=== PATIENT | male | born 1945 | race Caucasian/White ===

== ENCOUNTER → 2021-07-28 11:23 | Outpatient (BNVA) | payer OTHER, SELFPAY | PROVIDERS: Family Provider Emergency Medicine Emergency Medical Services; PCP Emergency Medicine Emergency Medical Services; Visit Provider Psychiatry & Neurology Psychiatry | DX: F32.A Depression, unspecified (principal); F43.10 Post-traumatic stress disorder, unspecified | CPT/HCPCS: 90792 ==

== ENCOUNTER → 2021-09-24 08:42 | Outpatient (BNVA) | payer OTHER, SELFPAY | PROVIDERS: Visit Provider Psychiatry & Neurology Psychiatry | DX: F32.A Depression, unspecified (principal); F43.10 Post-traumatic stress disorder, unspecified | CPT/HCPCS: 99214 ==

== ENCOUNTER 2023-07-14 09:21 | Emergency (ER) | payer OTHER, SELFPAY ==
--- NOTE | 2023-07-14 09:26 | ECG_ITS ---
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 Measurements Intervals [place] Rate: 82 P: 0 NE: 0 QRS: -31 QRSD: 127 T: 43 QT: 393 QTc: 460 Interpretive Statements ATRIAL FIBRILLATION POSSIBLE RIGHT VENTRICULAR CONDUCTION DELAY [RSR (QR) IN V1/V2] INFERIOR MYOCARDIAL INFARCTION , PROBABLY OLD [40+ ms Q WAVE AND/OR ST/T ABNORMALITY IN II/aVF] Compared to ECG 06/25/2018 11:55:36 Sinus rhythm no longer present First degree AV block no longer present Myocardial infarct finding still present Electronically Signed On 07-14-2023 11:38:35 AUTOMOTIVE SERVICE DIRECTOR by Rolly López M.D. [id number] f
[2023-07-14 09:28] VITALS: BP 134/81; PULSE 81; RESP 16; TEMP 36.4; O2SAT 97; BMI 29.9
--- NOTE | 2023-07-14 09:39 | XR_ITS ---
WS: [id number] XR chest 1V portable [id number] REASON FOR EXAM: new onset afib FINDINGS: Significant tortuosity and ectasia of the thoracic aorta. Mild cardiomegaly, hypertrophic appearance. Hilar and perihilar calcified granulomas disease. No acute or subacute pulmonary parenchymal or pleural abnormality. IMPRESSION: Hypertrophic cardiomegaly. No acute or subacute chest abnormality.
--- NOTE | 2023-07-14 09:44 | W.ED.WEAKNES ---
HPI - Weakness General: Chief complaint: Weakness Stated complaint: chest pain Time Seen by Provider: 07/14/23 09:37 Source: patient Mode of arrival: ambulatory History of Present Illness: 77-year-old male presents to the emergency room with complaint of weakness last 2 to 3 weeks he has some orthopnea and some dizziness spells but never actually passed out he is on oral anticoagulant for previous DVT still taking regularly. He has no known history of atrial fibrillation he is not having any chest discomfort at this time. No swelling in his legs. No known history of coronary disease. MD Complaint: generalized weakness Onset (ago): week(s) Relieving factors: none Exacerbating factors: none Associated symptoms: Denies chest pain, chills, confusion, melena, decreased appetite, diaphoresis, dysuria, easy bruising, fever(s), headache(s), myalgias, nausea, rash, short of breath, syncope or vomiting Review of Systems Const: Denies: fever(s), chills or diaphoresis Card: Reports: palpitations and irregular heart rhythm; Denies: chest pain, edema, swelling of feet/ankles or syncope Resp: Denies: dyspnea GI: Denies: abdominal pain, nausea, vomiting or melena : Denies: dysuria Musc: Denies: neck pain or back pain Skin/Breast: Denies: rash Neuro: Denies: headache(s) or confusion Kulwant/Lymph: Denies: easy bruising [facility] ED PFSH: Medical History Depression [place] filter in place ASHD (arteriosclerotic heart disease) Diabetes Hyperlipidemia DVT (deep venous thrombosis) Anticoagulant long-term use Eliquis HTN (hypertension) Prostate CA Family History Mother , AGE 83 CAD (coronary artery disease) Father , AGE 78 Cancer PANCREATIC CA Physical Exam Const: COMMON NORMALS: no acute distress GENERAL APPEARANCE: cooperative and comfortable ORIENTATION/CONSCIOUSNESS: Yes awake, Yes oriented to person, Yes oriented to place and Yes oriented to time HENMT: COMMON NORMALS: normocephalic, atraumatic and hearing grossly normal bilaterally HEAD & SCALP: normocephalic and atraumatic Resp: COMMON NORMALS: normal respiratory effort, No retractions, No use of accessory muscles and clear to auscultation bilaterally AUSCULTATION: clear to auscultation bilaterally Cardio: COMMON NORMALS: regular rate, regular rhythm and No murmurs present (Cardio) RATE: regular rate RHYTHM: regular rhythm GI: COMMON NORMALS: Soft to palpation and No hepatosplenomegaly present AUSCULTATION: Yes normoactive bowel sounds PALPATION: Yes Soft to palpation, No Tenderness to palpation present (GI), No Guarding due to palpation present (GI) and Yes No hepatosplenomegaly present Extremity: COMMON NORMALS: normal to inspection, capillary refill normal, no clubbing, cyanosis or edema, no calf tenderness and no pedal edema Neuro: SENSORIUM/ORIENTATION: Yes oriented to person, Yes oriented to place and Yes oriented to time Skin: COMMON NORMALS: no rashes or lesions noted GENERAL SKIN EXAM: no rashes or lesions noted Course Vital Signs: Vital signs: Vital Signs Temperature 97.6 F 07/14/23 09:28 Pulse Rate 88 07/14/23 12:05 Respiratory Rate 20 H 07/14/23 12:05 Blood Pressure 143/78 07/14/23 12:05 Pulse Oximetry 96 07/14/23 12:05 MDM - Weakness Medical Decision Making Patient is in atrial fibrillation atenolol and Eliquis. I do not think the atenolol is quite keeping him well-controlled at all times. Will switch him to Toprol-XL 50 mg once daily continue the Eliquis follow-up with his primary care doctor within the week rate at this time is well-controlled suspect he is having breakthrough episodes on the atenolol. Return if is worsening problems Medical Records I reviewed the patient's medical records. Lab Data I reviewed the patient's lab results. 07/14/23 10:03 07/14/23 10:03 Laboratory Results WBC 5.60 10^3/uL (3.29-11.43) 07/14/23 10:03 RBC 4.97 10^6/uL (3.85-5.65) 07/14/23 10:03 Hgb 15.60 g/dL (11.27-16.99) 07/14/23 10:03 Hct 47.5 % (37-53) 07/14/23 10:03 MCV 95.6 fl (82-101) 07/14/23 10:03 MCH 31.4 pg (27-33) 07/14/23 10:03 MCHC 32.8 g/dL (30-55) 07/14/23 10:03 RDW 12.9 % (12.1-15.1) 07/14/23 10:03 Plt Count 146 10^3/cmm (157-399) L 07/14/23 10:03 MPV 11.4 fL (7.4-10.4) H 07/14/23 10:03 Neut % (Auto) 62.7 % 07/14/23 10:03 Lymph % (Auto) 24.8 % 07/14/23 10:03 [place] % (Auto) 10.7 % 07/14/23 10:03 Eos % (Auto) 0.7 % 07/14/23 10:03 Baso % (Auto) 0.7 % 07/14/23 10:03 Neut # (Auto) 3.51 10^3/uL (1.8-7.7) 07/14/23 10:03 Lymph # (Auto) 1.4 10^3/uL (0.8-4.8) 07/14/23 10:03 [place] # (Auto) 0.6 10^3/uL (0.2-0.9) 07/14/23 10:03 Eos # (Auto) 0.0 10^3/uL (0.0-0.8) 07/14/23 10:03 Baso # (Auto) 0.0 10^3/uL (0.0-0.1) 07/14/23 10:03 Nucleated RBC % (auto) 0 % 07/14/23 10:03 Nucleated RBCs # 0.0 /100WBC 07/14/23 10:03 Sodium 142 mmol/L (136-145) 07/14/23 10:03 Potassium 4.4 mmol/L (3.5-5.1) 07/14/23 10:03 Chloride 105 mmol/L (98-107) 07/14/23 10:03 Carbon Dioxide 25 mmol/L (22-29) 07/14/23 10:03 Anion Gap 16.4 (5-19) 07/14/23 10:03 BUN 27 mg/dL (8-23) H 07/14/23 10:03 Creatinine 1.6 mg/dL (0.7-1.2) H 07/14/23 10:03 GFR Calculation Not Reportable 07/14/23 10:03 Glucose 188 mg/dL (65-115) H 07/14/23 10:03 Calculated Osmolality 304 mOsm/kg (285-295) H 07/14/23 10:03 Calcium 8.5 mg/dL (8.5-10.5) 07/14/23 10:03 Total Bilirubin 0.5 mg/dL (0.15-1.2) 07/14/23 10:03 AST 17 U/L (0-40) 07/14/23 10:03 ALT 20 U/L (0-41) 07/14/23 10:03 Alkaline Phosphatase 55 U/L (40-130) 07/14/23 10:03 Troponin T Baseline 22 ng/L (0-15) H 07/14/23 10:03 Total Protein 6.3 g/dL (6.6-8.7) L 07/14/23 10:03 Albumin 4.1 g/dL (3.5-5.2) 07/14/23 10:03 Globulin 2.2 g/dL (1.3-4.6) 07/14/23 10:03 TSH 1.84 uIU/mL (0.27-4.20) 07/14/23 10:03 All radiology interpretation(s) finalized by discharge Discharge Plan Discharge Patient Disposition: Home Clinical Impression: Atrial fibrillation Condition: Stable Prescriptions: New Toprol XL 50 mg tablet extended release 24 hr 50 mg PO DAILY Qty: 30 0RF Discontinued atenolol 100 mg tablet 100 mg PO QPM No Action Ozempic 0.25 mg or 0.5 mg(2 mg/1.5 mL) pen injector 0.5 mg SUBCUT Q7D Rx Instructions: ON TUESDAY Eliquis 5 mg tablet 2.5 mg PO BID lisinopril 40 mg tablet 40 mg PO QPM Lantus U-100 Insulin 100 unit/mL solution 20 unit SUBCUT QAM simvastatin 80 mg tablet 40 mg PO QPM tamsulosin 0.4 mg Capsule 0.8 mg PO QPM Discharge Orders: Discharge ED (Routine); Ordered 07/14/23 Ordered By: Jose Fofana Referrals: Janette Bills MD [Primary Care Provider] - Discharge Diet: Usual diet Discharge Activity: Increase activity as tolerated Patient Instructions: Opioid Safety, Pain Management Activity Restrictions/Additional Instructions: Thank you for choosing [facility] for your healthcare needs today. Please realize this is an emergency room and that we are providing you with a medical screening exam and this may not be complete and all inclusive of all the testing and or work up that you may need to determine your ailment or severity of your illness. It is very important that you follow up as instructed or that you return to the Emergency Department should you have concerns or if your condition changes or worsens in any way. You were seen today for atrial fibrillation. Recommend that you stop the atenolol and start metoprolol XL 50 mg once a day. Continue your Eliquis at this previously prescribed dose. Case management make arrangements for you to have a follow-up appointment with cardiology. Return if you have further problems. Coding Level of Care Code ED Sodium Chlorite Operator for Navya Dee
[2023-07-14 10:11] LABS: Basophils % 0.7 %; Eosinophils % 0.7 %; Hematocrit 47.5 % (37-53); Lymphocytes # 1.4 10^3/uL (0.8-4.8); Lymphocytes % 24.8 %; Mean Corpuscular HGB Conc 32.8 g/dL (30-55); Mean Corpuscular Hemoglobin 31.4 pg (27-33); Mean Corpuscular Volume 95.6 fl (82-101); Mean Platelet Volume 11.4 fL (7.4-10.4); Monocytes # 0.6 10^3/uL (0.2-0.9); Monocytes % 10.7 %; Neutrophils # 3.51 10^3/uL (1.8-7.7); Neutrophils % 62.7 %; Nucleated Red Blood Cells % 0 %; Platelet Count 146 10^3/cmm (157-399); Red Blood Count 4.97 10^6/uL (3.85-5.65); Red Cell Distribution Width 12.9 % (12.1-15.1)
[2023-07-14 10:33] VITALS: PULSE 88; RESP 23
[2023-07-14 10:34] LABS: Troponin(5th) Baseline 22 ng/L (0-15)
[2023-07-14 10:41] LABS: Alanine Aminotransferase 20 U/L (0-41); Albumin Level 4.1 g/dL (3.5-5.2); Alkaline Phosphatase 55 U/L (40-130); Aspartate Amino Transferase 17 U/L (0-40); Blood Urea Nitrogen 27 mg/dL (8-23); Calcium 8.5 mg/dL (8.5-10.5); Carbon Dioxide 25 mmol/L (22-29); Chloride 105 mmol/L (98-107); Globulin 2.2 g/dL (1.3-4.6); Glucose 188 mg/dL (65-115); Osmolality Calculated 304 mOsm/kg (285-295); Sodium 142 mmol/L (136-145); Thyroid Stimulating Hormone 1.84 uIU/mL (0.27-4.20); Total Bilirubin 0.5 mg/dL (0.15-1.2); Total Protein 6.3 g/dL (6.6-8.7)
[2023-07-14 10:45] LABS: Anion Gap 16.4 (5-19); Potassium 4.4 mmol/L (3.5-5.1)
--- NOTE | 2023-07-14 10:49 | PC.PHAR ---
PT VERIFIED MEDICATIONS WAITING ON [facility] TO DOUBLE VERIFY
[2023-07-14 11:00] VITALS: BP 145/101; PULSE 93; RESP 22; O2SAT 96
--- NOTE | 2023-07-14 12:03 | DCPLANNER ---
Message was sent to heart care on 07/14/23 at 1203. Clinic to contact patient.
[2023-07-14 12:05] VITALS: BP 143/78; PULSE 88; RESP 20; O2SAT 96
--- NOTE | 2023-07-15 10:43 | PC.SOCIAL ---
[facility] Auth: ER Note still in draft; sent to [place] to request authorization for cardiology follow up.
== END 2023-07-14 12:06 | disposition home or self-care (01) ==
PROVIDERS: Emergency Provider Family Medicine; PCP Family Medicine
DX: I48.91 Unspecified atrial fibrillation (principal); Z79.01 Long term (current) use of anticoagulants; Z79.4 Long term (current) use of insulin; E11.9 Type 2 diabetes mellitus without complications; E78.5 Hyperlipidemia, unspecified; I10 Essential (primary) hypertension; Z85.46 Personal history of malignant neoplasm of prostate
CPT/HCPCS: 36415; 71045; 80053; 84443; 84484; 85025; 93005; 99285

== ENCOUNTER → 2023-09-20 10:22 | Outpatient (BNVA) | payer OTHER, SELFPAY | PROVIDERS: PCP Family Medicine; Referring Provider Emergency Medicine Emergency Medical Services; Visit Provider Internal Medicine Cardiovascular Disease | DX: I10 Essential (primary) hypertension (principal); I48.91 Unspecified atrial fibrillation; Z79.01 Long term (current) use of anticoagulants; I82.409 Acute embolism and thrombosis of unspecified deep veins of unspecified lower extremity; E78.5 Hyperlipidemia, unspecified; I25.10 Atherosclerotic heart disease of native coronary artery without angina pectoris; Z95.828 Presence of other vascular implants and grafts; E11.9 Type 2 diabetes mellitus without complications; Z95.820 Peripheral vascular angioplasty status with implants and grafts; I47.10 Supraventricular tachycardia, unspecified; I49.3 Ventricular premature depolarization | CPT/HCPCS: 93225; 99203 ==

== ENCOUNTER 2023-10-03 09:19 | Outpatient (CLI) | payer OTHER, SELFPAY ==
--- NOTE | 2023-10-03 09:30 | USCV_ITS ---
Ken Miguel Age: 77 Gender: M : 1945 Exam Date: 10/03/2023 09:28 Ordering Phys: Roland Rod MD ([email or web address]) Technologist: Exam Location: [facility] – [place] Indication: murmur BP: 140 / 80 HR: 76 Rhythm: Sinus Technical Quality: Adequate MEASUREMENTS (Male / Female) Normal Values 2D ECHO LV Diastolic Diameter PLAX 4.6 cm 4.2 - 5.9 / 3.9 - 5.3 cm IVS Diastolic Thickness 1.3 cm 0.6 - 1.0 / 0.6 - 0.9 cm IVS Systolic Thickness 1.7 cm LVPW Diastolic Thickness 1.5 cm 0.6 - 1.0 / 0.6 - 0.9 cm LVPW Systolic Thickness 1.8 cm LVOT Diameter 2.0 cm LV Ejection Fraction 2D Teich 67.8 % LV Ejection Fraction MOD 2C 63.8 % LV Ejection Fraction 2C AL 65.4 % LA Diameter 2.9 cm RA Systolic Volume 4C AL 45.9 ml RA Systolic Volume 4C MOD 43.6 ml LA Sys Volume AL 59.8 cm cubed LA Sys Volume Index AL 27.3 cm cubed/m squared Aorta at Sinotubular Diameter 3.4 cm M-MODE LA Ao Ratio MM 1.1 AV Cusp Separation MM 2.5 cm DOPPLER AV Peak Velocity 120.0 cm/s LVOT Peak Velocity 84.0 cm/s AV Area Cont Eq vti 3.2 cm squared AV Area Cont Eq pk 2.2 cm squared MV Area PHT 4.1 cm squared Mitral E to A Ratio 0.5 TV Peak Velocity 142.0 cm/s TR Peak Velocity 164.0 cm/s TR Peak Gradient 10.8 mmHg TV Peak E Velocity 97.0 cm/s Right Atrial Pressure 3.0 mmHg Pulmonary Artery Systolic Pressu 13.8 mmHg PV Peak Velocity 85.0 cm/s FINDINGS Left Ventricle Left ventricle is normal in size. LV systolic function is normal with EF 55 to 60%. No regional wall motion abnormalities are seen. Grade 1 diastolic dysfunction. Right Ventricle Normal in size and function Right Atrium Normal in size Left Atrium Normal in size Mitral Valve Structurally normal mitral valve. Aortic Valve Structurally normal aortic valve. Mild aortic regurgitation. Tricuspid Valve Mild tricuspid regurgitation. Pulmonary artery systolic pressure is normal. Pulmonic Valve Not well-visualized. Pericardium Normal Aorta Normal in size IVC Not well visualized CONCLUSIONS LV systolic function is normal with EF 55 to 60%. Grade 1 diastolic dysfunction. Mild aortic regurgitation Mild tricuspid regurgitation Rolly López MD (Electronically Signed) Final Date: 08 Oct 2023 22:47 S
== END 2023-10-03 09:20 | disposition home or self-care (01) ==
LOC: RAD 09:19
PROVIDERS: PCP Emergency Medicine Emergency Medical Services; Visit Provider Internal Medicine Cardiovascular Disease
DX: I48.91 Unspecified atrial fibrillation (principal); I35.1 Nonrheumatic aortic (valve) insufficiency; I07.1 Rheumatic tricuspid insufficiency
CPT/HCPCS: 93306

== ENCOUNTER → 2023-12-19 11:27 | Outpatient (BNVA) | payer OTHER, SELFPAY | PROVIDERS: PCP Emergency Medicine Emergency Medical Services; Visit Provider Internal Medicine Cardiovascular Disease | DX: I10 Essential (primary) hypertension (principal); Z79.01 Long term (current) use of anticoagulants; I82.409 Acute embolism and thrombosis of unspecified deep veins of unspecified lower extremity; E78.5 Hyperlipidemia, unspecified; I25.10 Atherosclerotic heart disease of native coronary artery without angina pectoris; Z95.828 Presence of other vascular implants and grafts; Z95.820 Peripheral vascular angioplasty status with implants and grafts; E11.9 Type 2 diabetes mellitus without complications; Z79.4 Long term (current) use of insulin | CPT/HCPCS: 99214 ==

== ENCOUNTER 2024-01-17 10:00 | Emergency (ER) | payer OTHER, SELFPAY ==
[2024-01-17 10:00] VITALS: BP 164/91; PULSE 74; RESP 22; TEMP 37.1
--- NOTE | 2024-01-17 10:20 | ECG_ITS ---
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 Measurements Intervals [place] Rate: 73 P: 0 LA: 204 QRS: -35 QRSD: 139 T: -4 QT: 427 QTc: 473 Interpretive Statements SINUS RHYTHM INTRAVENTRICULAR CONDUCTION DELAY [130+ ms QRS DURATION] INFERIOR MYOCARDIAL INFARCTION , PROBABLY OLD [40+ ms Q WAVE AND/OR ST/T ABNORMALITY IN II/aVF] Compared to ECG 07/14/2023 09:26:41 Intraventricular conduction delay now present Atrial fibrillation no longer present Myocardial infarct finding still present Electronically Signed On 01-17-2024 16:27:29 CDT by Rolly López M.D. [email or web address]/[id number] f
--- NOTE | 2024-01-17 10:21 | XR_ITS ---
WS: [id number] Examination: XR chest 1V portable [id number] Reason for Exam: dyspnea/cough Date: January 17, 2024 Comparison: 01/24/2024 Findings: The heart is mildly prominent in size. The mediastinum is not widened. There is no pulmonary edema or pleural effusion. There is no dense consolidation XR/XR chest 1V portable [id number] Impression: No acute lung process is identified.
--- NOTE | 2024-01-17 10:21 | W.ED.WEAKNES ---
HPI - Weakness General: Chief complaint: Weakness Stated complaint: weakness, Dizzy Time Seen by Provider: 01/17/24 10:09 History of Present Illness: 78-year-old male presents emergency room complaining weakness and dizziness. He states he had this last couple weeks recurs and every stands up he is able to anticipate is not had any full syncopal episodes. He has a known history of coronary disease has previously had stents placed. We have been titrating some of his medications for blood pressure at this time. He is usually seen [facility] the [facility]. He is also has a known history of atrial fibrillation. He is on oral anticoagulation has not had any signs of bleeding Associated symptoms: Denies chest pain, chills, dysuria or fever(s) Review of Systems Const: Denies: fever(s) or chills Card: Denies: chest pain Resp: Denies: dyspnea GI: Denies: abdominal pain : Denies: dysuria, urinary frequency or urinary urgency Musc: Denies: neck pain or back pain Skin/Breast: Denies: rash Neuro: Reports: dizziness PFSH ED PFSH: Medical History Depression [place] filter in place ASHD (arteriosclerotic heart disease) Diabetes Hyperlipidemia DVT (deep venous thrombosis) Anticoagulant long-term use Eliquis HTN (hypertension) Prostate CA Surgical History S/P angioplasty with stent Family History Mother , AGE 83 CAD (coronary artery disease) Father , AGE 78 Cancer PANCREATIC CA Social History Smoking and tobacco/nicotine status: never used tobacco/nicotine Alcohol intake: never Substance/Drug Use: never Physical Exam Const: COMMON NORMALS: no acute distress GENERAL APPEARANCE: cooperative and comfortable ORIENTATION/CONSCIOUSNESS: Yes awake, Yes oriented to person, Yes oriented to place and Yes oriented to time HENMT: COMMON NORMALS: normocephalic, atraumatic and hearing grossly normal bilaterally HEAD & SCALP: normocephalic and atraumatic Resp: COMMON NORMALS: normal respiratory effort, No retractions, No use of accessory muscles and clear to auscultation bilaterally AUSCULTATION: clear to auscultation bilaterally Cardio: COMMON NORMALS: regular rate, regular rhythm and No murmurs present (Cardio) RATE: regular rate RHYTHM: regular rhythm GI: COMMON NORMALS: Soft to palpation and No hepatosplenomegaly present AUSCULTATION: Yes normoactive bowel sounds PALPATION: Yes Soft to palpation, No Tenderness to palpation present (GI), No Guarding due to palpation present (GI) and Yes No hepatosplenomegaly present Extremity: COMMON NORMALS: normal to inspection, capillary refill normal, no clubbing, cyanosis or edema, no calf tenderness and no pedal edema Neuro: SENSORIUM/ORIENTATION: Yes oriented to person, Yes oriented to place and Yes oriented to time Skin: COMMON NORMALS: no rashes or lesions noted GENERAL SKIN EXAM: no rashes or lesions noted Course Vital Signs: Vital signs: Vital Signs Temperature 98.7 F 01/17/24 10:00 Pulse Rate 68 01/17/24 12:41 Respiratory Rate 22 H 01/17/24 10:00 Blood Pressure 182/96 01/17/24 12:41 Pulse Oximetry 97 01/17/24 11:56 Oxygen Delivery Me thod Room Air 01/17/24 11:56 MDM - Weakness Medical Decision Making Patient presenting positive orthostatics when he first arrived here EKG first run shows some lateral ST depression however reviewing his old EKGs that has been has been present in the past. His troponins are negative he was given IV fluids and his repeat orthostatics are normal he is not having any further symptoms at this point. Will have him hold his hydrochlorothiazide. And follow-up with his primary care doctor within a week. His creatinine has climbed a little bit in the last year. He is also on lisinopril 40 daily which may also play a role. Further adjustments of his blood pressure medications in the outpatient setting. Lab Data 01/17/24 09:50 01/17/24 09:50 Radiology Impressions Chest X-Ray 01/17/24 10:21 Impression: No acute lung process is identified. Laboratory Results WBC 6.42 10^3/uL (3.29-11.43) 01/17/24 09:50 RBC 4.83 10^6/uL (3.85-5.65) 01/17/24 09:50 Hgb 15.20 g/dL (11.27-16.99) 01/17/24 09:50 Hct 45.7 % (37-53) 01/17/24 09:50 MCV 94.6 fl (82-101) 01/17/24 09:50 MCH 31.5 pg (27-33) 01/17/24 09:50 MCHC 33.3 g/dL (30-55) 01/17/24 09:50 RDW 12.5 % (12.1-15.1) 01/17/24 09:50 Plt Count 152 10^3/cmm (157-399) L 01/17/24 09:50 MPV 11.2 fL (7.4-10.4) H 01/17/24 09:50 Neut % (Auto) 64.1 % 01/17/24 09:50 Lymph % (Auto) 23.1 % 01/17/24 09:50 [place] % (Auto) 10.1 % 01/17/24 09:50 Eos % (Auto) 1.4 % 01/17/24 09:50 Baso % (Auto) 0.8 % 01/17/24 09:50 Neut # (Auto) 4.12 10^3/uL (1.8-7.7) 01/17/24 09:50 Lymph # (Auto) 1.5 10^3/uL (0.8-4.8) 01/17/24 09:50 [place] # (Auto) 0.7 10^3/uL (0.2-0.9) 01/17/24 09:50 Eos # (Auto) 0.1 10^3/uL (0.0-0.8) 01/17/24 09:50 Baso # (Auto) 0.1 10^3/uL (0.0-0.1) 01/17/24 09:50 Nucleated RBC % (auto) 0 % 01/17/24 09:50 Nucleated RBCs # 0.0 /100WBC 01/17/24 09:50 Sodium 137 mmol/L (136-145) 01/17/24 09:50 Potassium 3.8 mmol/L (3.5-5.1) 01/17/24 09:50 Chloride 101 mmol/L (98-107) 01/17/24 09:50 Carbon Dioxide 25 mmol/L (22-29) 01/17/24 09:50 Anion Gap 14.8 (5-19) 01/17/24 09:50 BUN 26 mg/dL (8-23) H 01/17/24 09:50 Creatinine 1.6 mg/dL (0.7-1.2) H 01/17/24 09:50 GFR Calculation Not Reportable 01/17/24 09:50 Glucose 139 mg/dL (65-115) H 01/17/24 09:50 Calculated Osmolality 291 mOsm/kg (285-295) 01/17/24 09:50 Calcium 8.9 mg/dL (8.5-10.5) 01/17/24 09:50 Total Bilirubin 0.6 mg/dL (0.15-1.2) 01/17/24 09:50 AST 23 U/L (0-40) 01/17/24 09:50 ALT 29 U/L (0-41) 01/17/24 09:50 Alkaline Phosphatase 59 U/L (40-130) 01/17/24 09:50 Troponin T Baseline 21 ng/L (0-15) H 01/17/24 09:50 Troponin T 120 Minute 17.54 ng/L (0-15) H 01/17/24 11:53 Delta Troponin T -3.46 ABS# (0-10) L 01/17/24 11:53 Total Protein 6.7 g/dL (6.6-8.7) 01/17/24 09:50 Albumin 4.1 g/dL (3.5-5.2) 01/17/24 09:50 Globulin 2.6 g/dL (1.3-4.6) 01/17/24 09:50 Urine Color Yellow (Yellow) 01/17/24 11:54 Urine Appearance Clear (CLEAR) 01/17/24 11:54 Urine pH 6.0 (5-7) 01/17/24 11:54 Ur Specific [place] 1.013 (1.005-1.030) 01/17/24 11:54 Urine Protein Negative (Negative) 01/17/24 11:54 Urine Glucose (UA) Negative (Normal) 01/17/24 11:54 Urine Ketones Negative (Negative) 01/17/24 11:54 Urine Blood Negative (Negative) 01/17/24 11:54 Urine Nitrate Negative (Negative) 01/17/24 11:54 Urine Bilirubin Negative (Negative) 01/17/24 11:54 Urine Urobilinogen 1.0 mg/dL (Negative) 01/17/24 11:54 Ur Leukocyte Esterase Negative (Negative) 01/17/24 11:54 Urine RBC 0-2 /hpf (0-2) 01/17/24 11:54 Urine WBC 0-5 /hpf (0-5) 01/17/24 11:54 Ur Squamous Epith Cells 0-5 /hpf (0-5) 01/17/24 11:54 Amorphous Sediment Not Reportable 01/17/24 11:54 Urine Bacteria None seen /hpf (NONE) 01/17/24 11:54 Hyaline Casts 3.30 /lpf 01/17/24 11:54 All radiology interpretation(s) finalized by discharge EKG Data EKG 1: Interpretation: EKG 813 2024-03-13. Q waves in 2 and aVF. Normal sinus rhythm. No acute ST changes noted. Compared to EKG 07/14/2023 at that time he was in atrial fibrillation Q waves are also present at that time. EKG 2: Interpretation: EKG 813 2024-05-17. Q waves still present in 3 and aVF unchanged from previous EKG in July and done earlier same day. No acute ST changes noted. Normal sinus rhythm GA interval at 215 first-degree AV block. Discharge Plan Discharge Patient Disposition: Home Clinical Impression: Orthostasis, Chronic kidney disease (CKD) Condition: Stable Prescriptions: Discontinued hydrochlorothiazide 25 mg tablet 25 mg PO QPM No Action Eliquis 5 mg tablet 2.5 mg PO BID lisinopril 40 mg tablet 40 mg PO QPM Lantus U-100 Insulin 100 unit/mL solution 20 unit SUBCUT QAM simvastatin 80 mg tablet 40 mg PO QPM cholecalciferol (vitamin D3) 50 mcg (2,000 unit) capsule 50 mcg PO QPM atenolol 100 mg tablet 100 mg PO QPM hydroxyzine HCl 25 mg tablet 25 mg PO BEDTIME PRN (Reason: Sleep) prazosin 2 mg capsule 8 mg PO BEDTIME amlodipine 5 mg tablet 5 mg PO QPM tamsulosin 0.4 mg Capsule 0.8 mg PO QPM sertraline 100 mg tablet 100 mg PO QPM semaglutide (weight loss) 1 mg/0.5 mL Pen Injector 1 mg SUBCUT Q7D Discharge Orders: Discharge ED (Routine); Ordered 01/17/24 Ordered By: Jose Fofana Referrals: Artemio Reyes, [Primary Care Provider] - Discharge Diet: Usual diet Discharge Activity: Increase activity as tolerated Patient Instructions: Opioid Safety, Pain Management Activity Restrictions/Additional Instructions: Thank you for choosing [facility] for your healthcare needs today. It is very important that you follow up as instructed or that you return to the Emergency Department should you have concerns or if your condition changes or worsens in any way. You were seen in the emergency room with episode of orthostatic hypotension (blood pressure dropping when you stand). Your symptoms and blood pressure readings improved after being given IV fluids. Recommend you hold the hydrochlorothiazide. Continue your other medications as previously prescribed follow-up with your primary care doctor within the next week to reevaluate blood pressure and symptoms. Have any worsening or recurrence of symptoms return to the emergency room Coding Level of Care Code ED Scientific Database Curator for Chg Fwd Related Data Home Medications Medication Instructions Recorded Confirmed insulin glargine 100 unit/mL 20 unit SUBCUT QAM 07/10/19 01/17/24 subcutaneous solution (Lantus U-100 Insulin) lisinopril 40 mg tablet 40 mg PO QPM 07/10/19 01/17/24 simvastatin 80 mg tablet 40 mg PO QPM 07/10/19 01/17/24 apixaban 5 mg tablet (Eliquis) 2.5 mg PO BID 07/28/21 01/17/24 tamsulosin 0.4 mg capsule 0.8 mg PO QPM 07/14/23 01/17/24 amlodipine 5 mg tablet 5 mg PO QPM 09/20/23 01/17/24 atenolol 100 mg tablet 100 mg PO QPM 09/20/23 01/17/24 cholecalciferol (vitamin D3) 50 50 mcg PO QPM 09/20/23 01/17/24 mcg (2,000 unit) capsule hydroxyzine HCl 25 mg tablet 25 mg PO BEDTIME PRN Sleep 09/20/23 01/17/24 prazosin 2 mg capsule 8 mg PO BEDTIME 09/20/23 01/17/24 semaglutide (weight loss) 1 mg/0.5 1 mg SUBCUT Q7D 01/17/24 01/17/24 mL subcutaneous pen injector sertraline 100 mg tablet 100 mg PO QPM 01/17/24 01/17/24 Allergies Allergy/AdvReac Type Severity Reaction Status Date / Time No Known Allergies Allergy Verified 12/19/23 11:33
[2024-01-17] MEDS: sodium chloride 0.9% 1,000 ML 999 ML IV (10:27)
[2024-01-17 10:30] LABS: Basophils # 0.1 10^3/uL (0.0-0.1); Basophils % 0.8 %; Eosinophils # 0.1 10^3/uL (0.0-0.8); Eosinophils % 1.4 %; Hematocrit 45.7 % (37-53); Lymphocytes # 1.5 10^3/uL (0.8-4.8); Lymphocytes % 23.1 %; Mean Corpuscular HGB Conc 33.3 g/dL (30-55); Mean Corpuscular Hemoglobin 31.5 pg (27-33); Mean Corpuscular Volume 94.6 fl (82-101); Mean Platelet Volume 11.2 fL (7.4-10.4); Monocytes # 0.7 10^3/uL (0.2-0.9); Monocytes % 10.1 %; Neutrophils # 4.12 10^3/uL (1.8-7.7); Neutrophils % 64.1 %; Nucleated Red Blood Cells % 0 %; Platelet Count 152 10^3/cmm (157-399); Red Blood Count 4.83 10^6/uL (3.85-5.65); Red Cell Distribution Width 12.5 % (12.1-15.1); White Blood Count 6.42 10^3/uL (3.29-11.43)
[2024-01-17 10:47] LABS: Alanine Aminotransferase 29 U/L (0-41); Albumin Level 4.1 g/dL (3.5-5.2); Alkaline Phosphatase 59 U/L (40-130); Anion Gap 14.8 (5-19); Aspartate Amino Transferase 23 U/L (0-40); Blood Urea Nitrogen 26 mg/dL (8-23); Calcium 8.9 mg/dL (8.5-10.5); Carbon Dioxide 25 mmol/L (22-29); Chloride 101 mmol/L (98-107); Globulin 2.6 g/dL (1.3-4.6); Glucose 139 mg/dL (65-115); Osmolality Calculated 291 mOsm/kg (285-295); Potassium 3.8 mmol/L (3.5-5.1); Sodium 137 mmol/L (136-145); Total Bilirubin 0.6 mg/dL (0.15-1.2); Total Protein 6.7 g/dL (6.6-8.7)
[2024-01-17 10:49] LABS: Troponin(5th) Baseline 21 ng/L (0-15)
--- NOTE | 2024-01-17 10:58 | PC.PHAR ---
PT IS [facility] 01/17/24 10:58AM
[2024-01-17 11:56] VITALS: BP 176/104; PULSE 72; O2SAT 97
[2024-01-17 11:59] LABS: Charge for UA Resulting for Rev
[2024-01-17 12:10] LABS: Bilirubin Urine Negative (Negative); Blood Urine Negative (Negative); Glucose Urine UA Negative (Normal); Ketones Urine Negative (Negative); Leukocyte Esterase Urine Negative (Negative); Nitrate Urine Negative (Negative); Protein Urine Negative (Negative); Specific Gravity, Urine 1.013 (1.005-1.030); Urine Appearance Clear (CLEAR); Urine Color Yellow (Yellow)
--- NOTE | 2024-01-17 12:12 | ECG_ITS ---
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 Measurements Intervals [place] Rate: 67 P: 13 OR: 215 QRS: -23 QRSD: 130 T: -4 QT: 441 QTc: 466 Interpretive Statements SINUS RHYTHM WITH FIRST DEGREE AV BLOCK POSSIBLE RIGHT VENTRICULAR CONDUCTION DELAY [RSR (QR) IN V1/V2] INFERIOR MYOCARDIAL INFARCTION , PROBABLY OLD [40+ ms Q WAVE AND/OR ST/T ABNORMALITY IN II/aVF] Compared to ECG 01/17/2024 10:08:56 First degree AV block now present Intraventricular conduction delay no longer present Myocardial infarct finding still present Electronically Signed On 01-17-2024 16:28:43 CDT by Rolly López M.D. [email or web address] Therapeuticsh[facility].[employer]/store/[id number]
[2024-01-17 12:16] LABS: Bacteria Urine None Seen /hpf; RBC Urine 0-2 /hpf (0-2); Squamous Epithelial Cell Urine 0-5 /hpf (0-5); WBC Urine 0-5 /hpf (0-5)
[2024-01-17 12:18] LABS: Troponin 5 2HR 17.54 ng/L (0-15)
[2024-01-17 12:20] LABS: Troponin 5 2HR Delta -3.46 ABS# (0-10)
[2024-01-17 12:41] VITALS: BP 128/83; BP 139/91; BP 182/96; PULSE 68; PULSE 76; PULSE 78
[2024-01-17 15:49] VITALS: BP 176/104; PULSE 72; RESP 22; TEMP 37.1; O2SAT 97
== END 2024-01-17 14:00 | disposition home or self-care (01) ==
PROVIDERS: Emergency Provider Family Medicine; PCP Emergency Medicine Emergency Medical Services
DX: I95.1 Orthostatic hypotension (principal); E11.22 Type 2 diabetes mellitus with diabetic chronic kidney disease; I12.9 Hypertensive chronic kidney disease with stage 1 through stage 4 chronic kidney disease, or unspecified chronic kidney disease; N18.9 Chronic kidney disease, unspecified; E78.5 Hyperlipidemia, unspecified; Z85.46 Personal history of malignant neoplasm of prostate; I44.0 Atrioventricular block, first degree; Z79.01 Long term (current) use of anticoagulants; Z79.4 Long term (current) use of insulin; Z79.85 Long-term (current) use of injectable non-insulin antidiabetic drugs
CPT/HCPCS: 36415; 71045; 80053; 81003; 81015; 84484; 85025; 93005; 99285; J7030